=== PATIENT | male | born 1955 | race African-American/Black ===

== ENCOUNTER 2023-08-15 17:46 | Emergency (ER) | payer BC, MEDICAID ==
[~2023-08-15] VITALS: Ht 180.3 cm; Wt 86.0 kg
[2023-08-15 17:53] VITALS: BP 173/85; PULSE 78; RESP 20; TEMP 98.2; O2SAT 99
[2023-08-15] MEDS ORDERED: AMOX1TAB16 MT (20:02)
[2023-08-15] MEDS ORDERED: NAPR220C61 MT (20:02)
== END 2023-08-15 20:27 | disposition home or self-care (01) ==
LOC: ER 17:46
DX: K04.7 Periapical abscess without sinus (principal); Z86.73 Personal history of transient ischemic attack (TIA), and cerebral infarction without residual deficits
CPT/HCPCS: 99281

== ENCOUNTER 2025-03-23 01:03 | Emergency (ER) | payer MEDICARE, MEDICAID ==
[~2025-03-23] VITALS: Ht 170.2 cm; Wt 84.0 kg
[~2025-03-23 01:03] MED LIST: AMOX1TAB16 MT; NAPR220C61 MT
[2025-03-23 01:21] VITALS: O2SAT 98
[2025-03-23] MEDS: DIPHENHYDRAMINE 25MG CAPSULE PO ONE (01:51)
[2025-03-23] MEDS ORDERED: HYDR28CR97 TP (02:17)
[2025-03-23 02:42] VITALS: BP 163/97; PULSE 65; RESP 18; TEMP 36.7; O2SAT 99
== END 2025-03-23 02:51 | disposition home or self-care (01) ==
LOC: ER 01:03
DX: R21 Rash and other nonspecific skin eruption (principal); I10 Essential (primary) hypertension; Z86.73 Personal history of transient ischemic attack (TIA), and cerebral infarction without residual deficits; Z90.49 Acquired absence of other specified parts of digestive tract; Z79.899 Other long term (current) drug therapy
CPT/HCPCS: 99282; Q0163